=== PATIENT | female | born 2000 | race Caucasian/White ===

== ENCOUNTER 2023-02-02 15:54 | Emergency (ER) | payer OTHER ==
[~2023-02-02] VITALS: Ht 160 cm; Wt 55.3 kg
[2023-02-02 16:19] VITALS: BP_SYST 99; PULSE 85; RESP 18; TEMP 98.3; O2SAT 98
[2023-02-02 18:36] LABS: BILIRUBIN,URINE 1+ (NEGATIVE); COLOR,URINE YELLOW (YELLOW); GLUCOSE,URINE NEGATIVE (NEGATIVE); KETONES,URINE TRACE (NEGATIVE); LEUKOCYTE ESTERASE ,URINE NEGATIVE (NEGATIVE); NITRITE, URINE NEGATIVE (NEGATIVE); PROTEIN URINE 1+ (NEGATIVE); UROBILINOGEN,URINE 0.2 (0.2-1.0)
[2023-02-02 18:39] LABS: BLOOD, URINE TRACE (NEGATIVE)
[2023-02-02 18:42] LABS: CLARITY/URINE HAZY (CLEAR)
[2023-02-02 18:44] LABS: HCG,QUAL RESULT NEGATIVE (NEGATIVE)
[2023-02-02 18:50] LABS: BACTERIA,URINE MODERATE /HPF (None Seen); MUCUS,URINE 3+ /LPF (None Seen)
== END 2023-02-02 19:13 | disposition home or self-care (01) ==
LOC: SED 15:54
DX: S31.41XA Laceration without foreign body of vagina and vulva, initial encounter (principal); Z79.899 Other long term (current) drug therapy; X58.XXXA Exposure to other specified factors, initial encounter; Y93.89 Activity, other specified; Y92.89 Other specified places as the place of occurrence of the external cause; Y99.8 Other external cause status
CPT/HCPCS: 81000; 81025; 84703; 87086; 99283